=== PATIENT | female | born 1975 | race Caucasian/White ===

== ENCOUNTER 2019-05-08 03:54 | Emergency (ER) | payer OTHER ==
[2019-05-08] MEDS ORDERED: Bacitracin 1 PK ONE (04:18)
== END 2019-05-08 04:25 | disposition home or self-care (01) ==
LOC: NAV ERS 03:54
DX: S61.241A Puncture wound with foreign body of left index finger without damage to nail, initial encounter (principal); F90.9 Attention-deficit hyperactivity disorder, unspecified type; F31.9 Bipolar disorder, unspecified; Z79.899 Other long term (current) drug therapy; W26.8XXA Contact with other sharp object(s), not elsewhere classified, initial encounter
CPT/HCPCS: 99283